=== PATIENT | female | born 1995 | race Caucasian/White ===

== ENCOUNTER → 2016-07-01 | Outpatient (CLI) | payer OTHER ==
--- NOTE | 2016-07-02 18:42 | EKG ---
Date Performed: 07/01/2016 Time Performed: 13:20:12 PTAGE: 21 years EKG: Sinus rhythm WITH SINUS ARRHYTHMIA NONSPECIFIC T-WAVE ABNORMALITY BORDERLINE ECG NO PREVIOUS TRACING DOCTOR: Ministerio iNcole Interpretating Date/Time 07/02/2016 18:40:08
== END ==
LOC: HCAV 12:56
DX: Z13.9 Encounter for screening, unspecified (principal); I49.8 Other specified cardiac arrhythmias
CPT/HCPCS: 93005